=== PATIENT | male | born 1975 | race Caucasian/White ===

== ENCOUNTER 2021-05-01 13:21 | Outpatient (REF) | payer MEDICAID, SELFPAY ==
--- NOTE | ~2021-05-01 | XR_ITS ---
EXAMINATION: XR TOE, RIGHT XR KNEE, RIGHT CLINICAL INFORMATION: Pain right big toe. COMPARISON: None TECHNIQUE: 3 views right toe. 4 views right knee. FINDINGS: RIGHT KNEE: There is loss of medial and patellofemoral compartment joint space with moderate periarticular spurring and mild suprapatellar joint effusion. No loose body or bony erosive changes. No acute fracture or dislocation. RIGHT TOE: There is a [id number] deformity PIP joint right great toe suggestive of likely rheumatoid arthritis; however, small bone fragments are seen adjacent to the distal phalanx 1st digit secondary to osteolytic process. There is moderate soft tissue swelling. No osteopenia seen. There is mild loss of 1st metatarsophalangeal joint with moderate periarticular spurring. Rest of the digits are unremarkable. XR/XR toe RT min 2V IMPRESSION: 1. Findings suggestive of likely rheumatoid arthritis PIP joint right great toe with underlying osteoarthritis as well. 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 There is moderate soft tissue swelling involving the right great toe. 2. Degenerative arthritic changes medial and patellofemoral compartment right knee.
--- NOTE | ~2021-05-01 | XR_ITS ---
EXAMINATION: XR TOE, RIGHT XR KNEE, RIGHT CLINICAL INFORMATION: Pain right big toe. COMPARISON: None TECHNIQUE: 3 views right toe. 4 views right knee. FINDINGS: RIGHT KNEE: There is loss of medial and patellofemoral compartment joint space with moderate periarticular spurring and mild suprapatellar joint effusion. No loose body or bony erosive changes. No acute fracture or dislocation. RIGHT TOE: There is a [id number] deformity PIP joint right great toe suggestive of likely rheumatoid arthritis; however, small bone fragments are seen adjacent to the distal phalanx 1st digit secondary to osteolytic process. There is moderate soft tissue swelling. No osteopenia seen. There is mild loss of 1st metatarsophalangeal joint with moderate periarticular spurring. Rest of the digits are unremarkable. XR/XR knee RT 4V IMPRESSION: 1. Findings suggestive of likely rheumatoid arthritis PIP joint right great toe with underlying osteoarthritis as well. 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 There is moderate soft tissue swelling involving the right great toe. 2. Degenerative arthritic changes medial and patellofemoral compartment right knee.
== END 2021-05-01 13:22 | disposition home or self-care (01) ==
LOC: HO.XRAY 13:21
PROVIDERS: PCP Nurse Practitioner Family; Visit Provider Nurse Practitioner Family
DX: M86.9 Osteomyelitis, unspecified (principal); M25.561 Pain in right knee
CPT/HCPCS: 73564; 73660

== ENCOUNTER 2021-05-15 09:19 | Outpatient (REF) | payer MEDICAID, SELFPAY ==
[2021-05-15 12:09] LABS: Amphetamine Screen Urine Not Detected (Not Detect); Barbiturates, Urine Not Detected (Not Detect); Benzodiazepines Screen Urine Not Detected (Not Detect); Cannabinoid Screen Urine POSITIVE (Not Detect); Cocaine Screen Urine POSITIVE (Not Detect); Opiate Screen Urine Not Detected (Not Detect); Phencyclidine Screen Urine Not Detected (Not Detect)
[2021-05-19 07:34] LABS: Buprenorphine NEGATIVE
[2021-05-19 07:35] LABS: Naloxone NEGATIVE; Norbuprenorphine NEGATIVE
[2021-05-19 07:37] LABS: Fentanyl, Ur NEGATIVE
[2021-05-19 07:38] LABS: Norfentanyl, Ur NEGATIVE
[2021-05-19 12:50] LABS: EDDP (Methadone Metabolite) 320 ng/mL; Methadone, Urine MS 710 ng/mL
== END 2021-05-15 09:20 | disposition home or self-care (01) ==
LOC: HO.LAB 09:19
PROVIDERS: PCP Nurse Practitioner Family; Visit Provider Nurse Practitioner Family
DX: R82.5 Elevated urine levels of drugs, medicaments and biological substances (principal)
CPT/HCPCS: 80307; 80348; 80349; 80353; 80354; 80358; 80362; 80364; 80365

== ENCOUNTER 2021-12-21 12:12 | Outpatient (REF) | payer MEDICAID, SELFPAY ==
--- NOTE | ~2021-12-21 | XR_ITS ---
EXAMINATION: XR KNEE AP STANDING CLINICAL INFORMATION: Pain COMPARISON: Previous right knee x-ray April 2021 TECHNIQUE: AP bilateral standing view of the knees was obtained. FINDINGS: The right knee is higher than the left by approximately 2.5 cm. There is arthritis at the lateral femoral tibial joint with joint space narrowing and osteophyte formation. There is a small well-corticated soft tissue ossification adjacent to the lateral femoral condyle, question related to old trauma. Standing AP view of the left knee demonstrates mild degenerative meniscal calcification. There is evidence of atherosclerotic disease. XR/XR knee standing BI IMPRESSION: The right knee is higher than the left. Degenerative changes of the right lateral femoral tibial joint.
== END 2021-12-21 12:13 | disposition home or self-care (01) ==
LOC: HO.HOSX 12:12
PROVIDERS: Visit Provider Orthopaedic Surgery
DX: M17.11 Unilateral primary osteoarthritis, right knee (principal); M79.672 Pain in left foot; E11.610 Type 2 diabetes mellitus with diabetic neuropathic arthropathy; F17.210 Nicotine dependence, cigarettes, uncomplicated; F11.20 Opioid dependence, uncomplicated; Z89.412 Acquired absence of left great toe; Z89.422 Acquired absence of other left toe(s); Z79.899 Other long term (current) drug therapy
CPT/HCPCS: 73565; 99202

== ENCOUNTER 2021-12-26 13:21 | Outpatient (REF) | payer MEDICAID, SELFPAY ==
[2021-12-26 14:25] LABS: Hematocrit 23.7 % (42.0-52.0); Hemoglobin 7.5 g/dl (14.0-18.0); Mean Corpuscular HGB Conc 31.6 g/dl (31.0-36.0); Mean Corpuscular Volume 91.5 fL (80.0-98.0); Mean Platelet Volume 9.5 fL (9.4-12.4); Platelet Count 242 X10*3/uL (160-400); Red Blood Count 2.59 X10*6/uL (4.60-5.80); Red Cell Distribution Width 13.6 % (11.0-16.0); White Blood Count 8.4 X10*3/uL (4.8-10.8)
[2021-12-26 14:27] LABS: Amphetamine Screen Urine Not Detected (Not Detect); Barbiturates, Urine Not Detected (Not Detect); Benzodiazepines Screen Urine Not Detected (Not Detect); Cannabinoid Screen Urine POSITIVE (Not Detect); Cocaine Screen Urine Not Detected (Not Detect); Fentanyl, urine Not Detected (Not Detect); Opiate Screen Urine POSITIVE (Not Detect); Phencyclidine Screen Urine Not Detected (Not Detect)
[2021-12-26 14:52] LABS: Creatinine Urine 56.99 mg/dL
[2021-12-26 15:24] LABS: Alanine Aminotransferase 9 U/L (0-40); Albumin Level 3.4 g/dL (3.5-5.0); Alkaline Phosphatase 94 U/L (39-117); Anion Gap 15 (12-20); Aspartate Amino Transferase 13 U/L (5-37); Bilirubin Total 0.4 mg/dL (0.0-1.0); Blood Urea Nitrogen 60 mg/dL (9-16); Calcium 8.4 mg/dL (8.4-10.2); Carbon Dioxide 21 mmol/L (22-29); Chloride 109 mmol/L (96-108); Cholesterol 140 mg/dL; Estimated Glomerular Filt Rate 11; Glucose Random 133 mg/dL (60-115); HDL Cholesterol 33 mg/dL; Iron 55 mcg/dL (45-160); LDL Cholesterol Calculated 83 mg/dl; Percent Iron Saturation 26 % (15-50); Potassium 5.4 mmol/L (3.3-5.1); Sodium 140 mmol/L (135-145); Total Iron Binding Capacity 210 mcg/dL (228-428); Total Protein 6.9 g/dL (6.5-8.0); Triglycerides 122 mg/dL; Unsaturated Iron Binding 155 ug/dL
[2022-01-01 07:24] LABS: Buprenorphine NEGATIVE; Naloxone NEGATIVE; Norbuprenorphine NEGATIVE
[2022-01-01 13:32] LABS: EDDP (Methadone Metabolite) 1100 ng/mL; Methadone, Urine MS 2400 ng/mL
== END 2021-12-26 13:22 | disposition home or self-care (01) ==
LOC: HO.LAB 13:21
PROVIDERS: PCP Nurse Practitioner Family; Visit Provider Nurse Practitioner Family
DX: E11.22 Type 2 diabetes mellitus with diabetic chronic kidney disease (principal); N18.9 Chronic kidney disease, unspecified; D50.9 Iron deficiency anemia, unspecified; Z79.899 Other long term (current) drug therapy
CPT/HCPCS: 80053; 80061; 80307; 80348; 80358; 80362; 82043; 83540; 85027

== ENCOUNTER → 2022-06-25 11:13 | Outpatient (BNVA) | payer MEDICAID, SELFPAY | PROVIDERS: Visit Provider Internal Medicine | DX: E11.610 Type 2 diabetes mellitus with diabetic neuropathic arthropathy (principal); M79.672 Pain in left foot | CPT/HCPCS: 99212 ==

== ENCOUNTER → 2022-12-05 11:22 | Outpatient (BNVA) | payer MEDICAID, SELFPAY | PROVIDERS: Visit Provider Internal Medicine | DX: M17.11 Unilateral primary osteoarthritis, right knee (principal); E11.610 Type 2 diabetes mellitus with diabetic neuropathic arthropathy | CPT/HCPCS: 99212 ==

== ENCOUNTER → 2023-01-04 11:41 | Outpatient (BNVA) | payer MEDICAID, SELFPAY | PROVIDERS: Visit Provider Internal Medicine | DX: M86.672 Other chronic osteomyelitis, left ankle and foot (principal) | CPT/HCPCS: 99212 ==